=== PATIENT | female | born 1940 ===

== ENCOUNTER → 2021-09-01 11:26 | Outpatient (CLI) | payer MEDICARE, OTHER, SELFPAY ==
[2021-09-01 14:03] LABS: COVID19 -Nasal RAPID Negative (Negative)
== END ==
PROVIDERS: PCP Internal Medicine; Visit Provider Family Medicine Sleep Medicine
DX: Z20.822 Contact with and (suspected) exposure to COVID-19 (principal)
CPT/HCPCS: 87635; C9803

== ENCOUNTER 2021-09-03 13:03 | Day surgery (SDC) | payer MEDICARE, OTHER, SELFPAY ==
--- NOTE | 2021-09-03 | PATH_ITS ---
[facility] Accession Number: [id number] . 01 Material submitted: . PART A: small intestine - SMALL INTESTINE PART B: body - ULCER . 01 Clinical history: . A: R/O CELIAC B: R/O HP . 02 Diagnosis: A. Small Bowel, Biopsy: Duodenal mucosa with no diagnostic abnormality. Negative for active inflammation, features of sprue, dysplasia, or malignancy. . B. Stomach, Ulcer, Biopsy: Antral mucosa with reactive gastropathy and mild chronic gastritis. Negative for Helicobacter by immunohistochemistry. Negative for CMV antigen by immunohistochemistry. Negative for intestinal metaplasia. Negative for dysplasia and malignancy. [facility] 09/09/2021 1621 Local . 02 Electronically signed: . Tiesha Church MD, Pathologist NPI- [id number] . 01 Gross description: . Part A: SMALL INTESTINE: Received in formalin are 2 fragment(s) of garcia, soft tissue measuring 0.3 x 0.2 x 0.2 cm to 0.2 x 0.2 x 0.1 cm submitted entirely in 1 cassette(s) Part B: ULCER: Received in formalin are 3 fragment(s) of garcia, soft tissue measuring 0.4 x 0.2 x 0.2 cm to 0.2 x 0.2 x 0.1 cm submitted entirely in 1 cassette(s) /QBJ 09/05/2021 0417 Local . 02 Microscopic: . B. An immunohistochemical stain was performed to evaluate for Helicobacter organisms and is negative. A CMV immunohistochemical stain was performed to evaluate for CMV antigen and is negative. Both control stains showed appropriate reactivity. . * This test was developed and its performance characteristics determined by [employer]. It has not been cleared or approved by the U.S. Food and Drug Administration. The FDA has determined that such clearance or approval is not necessary. This test is used for clinical purposes. It should not be regarded as investigational or for research. . 02 Pathologist provided ICD-10: D50.9, K62.5 . 02 CPT . 299670, 411019, C41649, A49193 Specimen Comment: A courtesy copy of this report has been sent to [phone] Performed at: 01 [facility] [address] [place] [address], [place], [place] [id number] MD Jay Hopson MD Phone: [phone] Performed at: [address] [id number] MD Tiesha Church MD Phone: [phone]
[2021-09-03 13:31] VITALS: BP 147/68; PULSE 80; RESP 16; TEMP 36.6; O2SAT 96; BMI 28.8
[2021-09-03] MEDS: LACTATED RINGERS 1,000 ML 42 ML IV (13:51)
[2021-09-03 13:55] VITALS: BMI 28.8
--- NOTE | 2021-09-03 13:56 | PM.HP.1 ---
History of Present Illness History of Present Illness Date Patient Seen: 09/03/21 Chief complaint: SDC Narrative: Iron deficiency anemia Patient History Medical History (Updated 09/03/21 @ 13:47 by Elisa Steele RN) Anemia Diabetes 1.5, managed as type 2 GERD (gastroesophageal reflux disease) HTN (hypertension) Hypercholesteremia Surgical History (Updated 09/03/21 @ 13:31 by Elisa Steele RN) H/O shoulder surgery H/O: hysterectomy Family & Social History Tobacco & Substance use: Smoking Status Never smoker alcohol intake never Substance Use Type does not use Meds Home Medications and Allergies Home Medications Medication Instructions Recorded Confirmed Type ACETAMINOPHEN 325 mg PO PRN #0 12/15/10 09/03/21 History Coenzyme Q10 (COENZYME Q10~) 300 mg PO Q DAY #0 12/15/10 09/03/21 History Metformin Hydrochloride 1,000 mg PO BID #0 12/15/10 09/03/21 History (GLUCOPHAGE) fenofibric acid (choline) 135 mg 135 mg PO Q DAY #0 12/15/10 09/03/21 History capsule,delayed release (Trilipix) simvastatin 40 mg tablet 40 mg PO HS #0 12/15/10 09/03/21 History telmisartan 40 mg tablet (Micardis) 40 mg PO QDAY #0 12/15/10 09/03/21 History Allergies Allergy/AdvReac Type Severity Reaction Status Date / Time INGREDIENT: NKDA - NO KNOWN Allergy Unknown Uncoded 09/03/21 13:24 DRUG ALLERGIES Exam Vital Signs (past 8 hours): - 09/03/21 13:31 Temperature 97.8 F Pulse Rate 80 Respiratory Rate 16 Blood Pressure 147/68 H Pulse Oximetry 96 Oxygen Delivery Method Room Air Narrative Exam Narrative: Oropharynx free of lesions Chest clear to auscultation percussion Cardiac exam reveals no S3 or murmur Assessment & Plan Assessment & Plan narrative: Iron deficiency anemia. Need for EGD to rule out reflux or peptic disease and take biopsies for celiac. Colonoscopy to be performed to rule out neoplasia. Risks, benefits, alternatives have been explained. Time Spent With Patient Critical Care time: I spent a total of [] minutes of critical care time on this patient's care today; this time is exclusive of procedural time.
--- NOTE | 2021-09-03 13:57 | PM.OP.EC ---
Operative Date/Time/Diagnoses Date of procedure: 09/03/21 Pre-op diagnosis: See indication and findings Procedure & Clinicians Study performed: EGD and colonoscopy Indications: Iron deficiency anemia Surgeon: Magui Duran Procedure Notes Procedure in detail: After informed consent was obtained the patient was placed in left lateral decubitus position. The video upper scope was placed into the oropharynx and with the patient's help swelled into esophagus. The esophagus stomach and duodenum were carefully examined. On slow withdrawal mucosa was carefully examined. The scope was removed. The patient tolerated procedure well. At this point the patient was turned and the colonoscope substituted which was introduced into the rectum slowly advanced cecum. On slow withdrawal mucosa was carefully examined. The scope was removed. The patient tolerated procedure well. Preparation was good. Blood loss none Complications none Sedation mac Findings EGD 1. Normal esophagus with mild Schatzki's ring at 38 cm. No hiatal hernia present 2. Punched out small 3 mm gastric ulcer and antral position. Biopsies taken here and throughout the stomach to rule out Helicobacter 3. Normal duodenal bulb and sweep biopsies taken to rule out celiac Colonoscopy 1. Scattered diverticulosis throughout the colon 2. Otherwise negative colonoscopy to cecum Follow up with Dr. Branch: To go over results and decide on whether any further workup is necessary such as pill camera
[2021-09-03 15:06] VITALS: BP 131/65; PULSE 70; RESP 13; TEMP 36.2; O2SAT 97
[2021-09-03 15:11] VITALS: BP 130/63; PULSE 72; RESP 13; O2SAT 96
[2021-09-03 15:17] VITALS: BP 128/61; PULSE 65; RESP 15; O2SAT 96
[2021-09-03 15:25] VITALS: BP 149/62; PULSE 63; RESP 17; TEMP 35.7; O2SAT 96
[2021-09-03 15:27] VITALS: BP 157/65; PULSE 63; RESP 15; TEMP 35.9; O2SAT 96
--- NOTE | 2021-09-03 15:49 | SUR.PHASEII ---
Pt up to BR. Steady on feet.
== END 2021-09-03 15:48 | disposition home or self-care (01) ==
PROVIDERS: PCP Family Medicine; Referring Provider Internal Medicine Gastroenterology; Visit Provider Internal Medicine Gastroenterology
PROC: 0DJ08ZZ Inspection of Upper Intestinal Tract, Via Natural or Artificial Opening Endoscopic (ICD-10-PCS; CPT 43235; principal; 2021-09-03 14:00)
PROC: 0DJD8ZZ Inspection of Lower Intestinal Tract, Via Natural or Artificial Opening Endoscopic (ICD-10-PCS; CPT 45378; 2021-09-03 14:00)
DX: D50.9 Iron deficiency anemia, unspecified (principal); E11.9 Type 2 diabetes mellitus without complications; E78.00 Pure hypercholesterolemia, unspecified; I10 Essential (primary) hypertension; Z79.84 Long term (current) use of oral hypoglycemic drugs; K22.2 Esophageal obstruction; K25.9 Gastric ulcer, unspecified as acute or chronic, without hemorrhage or perforation; K57.30 Diverticulosis of large intestine without perforation or abscess without bleeding; K29.50 Unspecified chronic gastritis without bleeding
CPT/HCPCS: 43239; 45378; J2704